=== PATIENT | male | born 1990 | race Caucasian/White ===

== ENCOUNTER 2019-08-14 10:30 | Emergency (ER) | payer OTHER ==
[2019-08-14] MEDS ORDERED: Adacel (T-DAP) 0.5 ML SYRINGE ONE (10:58)
--- NOTE | 2019-08-14 12:14 | CT ---
CT FACIAL BONES: Date: 08/14/2019 INDICATION: Injury to face. FINDINGS: There is asymmetry of the left nasal bone with evidence of left nasal bone fracture without significa nt displacement. There is fracture of the floor of the left orbit with orbital fat herniating through the defect into the roof of the left maxillary sinus. No evidence of extraocular muscle impingement. Fracture of the lamina papyracea/medial wall of the left orbit with depression of the lamina papyrace a and mild associated ethmoid sinus mucosal edema. There is a small air fluid level in the left maxillary antrum. There is evidence of a subtle fracture involving the anterior wall of the left maxillary sinus. The zygoma appears intact. Mandible appears intact. Soft tissues show diffuse swelling and gas density over the left orbit and within the soft tissues of the inferior left cheek region. IMPRESSION: 1. Left nasal bone fracture. 2. Fractures of the orbit involving the floor of the orbit with mild herniation of orbital fat throu gh this defect. There is fracture of the medial wall of the left orbit involving the lamina papyracea . Fracture of the anterior wall of the left maxillary sinus. POS: SHERIDAN
== END 2019-08-14 13:00 | disposition home or self-care (01) ==
LOC: ERS 10:30
DX: S02.32XA Fracture of orbital floor, left side, initial encounter for closed fracture (principal); S00.12XA Contusion of left eyelid and periocular area, initial encounter; F98.8 Other specified behavioral and emotional disorders with onset usually occurring in childhood and adolescence; Z79.899 Other long term (current) drug therapy; W50.1XXA Accidental kick by another person, initial encounter
CPT/HCPCS: 70486; 90471; 90715

== ENCOUNTER 2020-03-11 02:56 | Emergency (ER) | payer OTHER ==
[2020-03-11] MEDS ORDERED: Lidocaine 1% PF 5 ML VIAL ONE (04:07)
[2020-03-11] MEDS ORDERED: Bacitracin 1 PK ONE (04:27)
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
== END 2020-03-11 04:30 | disposition home or self-care (01) ==
LOC: ERS 02:56
DX: S01.81XA Laceration without foreign body of other part of head, initial encounter (principal); F10.129 Alcohol abuse with intoxication, unspecified; F98.8 Other specified behavioral and emotional disorders with onset usually occurring in childhood and adolescence; Z79.899 Other long term (current) drug therapy; Y04.8XXA Assault by other bodily force, initial encounter; Z23 Encounter for immunization
CPT/HCPCS: 12011; 70450; 70486; 72125